=== PATIENT | male | born 1940 | race Caucasian/White ===

== ENCOUNTER 2016-03-02 11:18 | Emergency (ER) | payer MEDICARE, OTHER ==
--- NOTE | 2016-03-02 13:18 | Emergency Department Record ---
History of Present Illness - General Chief Complaint: Hypertension Stated Complaint: ELEVATED B/P Time Seen by Provider: 03/02/16 12:33 Source: Patient, RN notes reviewed Mode of Arrival: Ambulatory - History of Present Illness Initial Comments: patient states here for a BP check and it was high over 200 systolic and it came down to 179/78 just sitting in the ED and I talked to him about increasing his meds for hypertension but he is seeing Dr. Rickey corbett in [address] Travis in 4 days and I want them to adjust his meds because he is asymptomatic at this time. Heart rate 50. He ate salty foods 2 days ago at [facility]. Patient also said Dr. Rickey Luna started a new BP med two weeks ago but he doesn't remember the name of the med. MD Complaint: Dizziness Onset/Timin -: Minutes(s) Timing: Unsure Improves With: Nothing Worsens With: Nothing - Related Data Home Medications Medication Instructions Recorded Confirmed Last Taken Metoprolol Succinate [Toprol Xl] 25 mg PO tab 02/26/16 03/02/16 Omeprazole 20 mg PO cap 02/26/16 03/02/16 Pravastatin Sodium 10 mg PO tab 02/26/16 03/02/16 Allergies Allergy/AdvReac Type Severity Reaction Status Date / Time meperidine HCl [From Demerol] Allergy Severe PT UNSURE Verified 03/02/16 12:01 OF REACTION meperidine [MEPERIDINE] Allergy Unknown VOMITING Verified 03/02/16 12:01 hydrocodone bitartrate AdvReac Intermediate NAUSEA AND Verified 03/02/16 12:01 [From [place]] VOMITING Travel Screening - Travel/Exposure Within Last 30 Days Have you traveled within the last 30 days?: No - Travel/Exposure Within Last Year Have you traveled outside the [place] in the last year?: No - Additonal Travel Details Have you been exposed to anyone with a communicable illness?: No - Travel Symptoms Symptom Screening: None Review of Systems Reviewed: No additional complaints except as noted below Constitutional: Reports: As per HPI. Denies: Chills, Fever, Malaise, Night sweats, Weakness, Weight change Eyes: Reports: As per HPI. Denies: Eye discharge, Eye pain, Photophobia, Vision change ENT: Reports: As per HPI. Denies: Congestion, Dental pain, Ear pain, Epistaxis , Hearing loss, Throat pain Respiratory: Reports: As per HPI. Denies: Cough, Dyspnea, Hemoptysis, Stridor, Wheezes Cardiovascular: Reports: As per HPI. Denies: Arrhythmia, Chest pain, Dyspnea on exertion, Edema, Murmurs, Orthopnea, Palpitations, Paroxysmal nocturnal dyspnea, Rheumatic Fever, Syncope Endocrine: Reports: As per HPI. Denies: Fatigue, Heat or cold intolerance, Polydipsia, Polyuria Gastrointestinal: Reports: As per HPI. Denies: Abdominal pain, Constipation, Diarrhea, Hematemesis, Hematochezia, Melena, Nausea, Vomiting Genitourinary: Reports: As per HPI. Denies: Dysuria, Frequency, Hematuria, Incontinence, Retention, Testicular pain, Testicular mass, Urgency Musculoskeletal: Reports: As per HPI. Denies: Arthralgia, Back pain, Gout, Joint swelling, Myalgia, Neck pain Skin: Reports: As per HPI. Denies: Bruising, Change in color, Change in hair/ nails, Lesions, Pruritus, Rash Neurological: Reports: As per HPI. Denies: Abnormal gait, Confusion, Headache, Numbness, Paresthesias, Seizure, Tingling, Tremors, Vertigo, Weakness Psychiatric: Reports: As per HPI. Denies: Anxiety, Auditory hallucinations, Depression, Homicidal thoughts, Suicidal thoughts, Visual hallucinations Hematological/Lymphatic: Reports: As per HPI. Denies: Anemia, Blood Clots, Easy bleeding, Easy bruising, Swollen glands Past Medical History - SOCIAL HISTORY Smoking Status: Former smoker Alcohol Use: Occassional Drug Use: None - RESPIRATORY Hx Respiratory Disorders: Yes Hx of CPAP: Yes - CARDIOVASCULAR Hx Cardio Disorders: Yes Hx Cardiac Cath: Yes - NEURO Hx Neuro Disorders: No - GI Hx GI Disorders: No - Hx Genitourinary Disorders: No - ENDOCRINE Hx Endocrine Disorders: Yes Hx Diabetes: Yes - MUSCULOSKELETAL Hx Musculoskeletal Disorders: Yes Hx Arthritis: Yes Hx Back Injury: Yes - PSYCH Hx Psych Problems: Yes Hx Depression: Yes - HEMATOLOGY/ONCOLOGY Hx Hematology/Oncology Disorders: No Family Medical History Any Significant Family History?: Yes Hx Cancer: Mother Hx Heart Disease: Father *Heart Comment: father had 2 heart attacks. Hx Stroke: Father Physical Exam - General General Appearance: Alert, Oriented x3, Cooperative, No acute distress - Head Head exam: Normal inspection - Eye Eye exam: Normal appearance, PERRL Pupils: Normal accommodation - ENT ENT exam: Normal exam, Mucous membranes moist, Normal external ear exam, Normal orophraynx, TM's normal bilaterally Ear exam: Normal external inspection. negative: External canal tenderness Nasal Exam: Normal inspection. negative: Discharge, Sinus tenderness Mouth exam: Normal external inspection, Tongue normal Teeth exam: Normal inspection. negative: Dental caries Throat exam: Normal inspection. negative: Tonsillar erythema, Tonsillar exudate - Neck Neck exam: Normal inspection, Full ROM. negative: Tenderness - Respiratory Respiratory exam: Normal lung sounds bilaterally. negative: Respiratory distress - Cardiovascular Cardiovascular Exam: Regular rate, Normal rhythm, Normal heart sounds - GI/Abdominal GI/Abdominal exam: Soft, Normal bowel sounds. negative: Tenderness - Rectal Rectal exam: Deferred - exam: Deferred - Extremities Extremities exam: Normal inspection, Full ROM, Normal capillary refill. negative: Tenderness - Back Back exam: Reports: Normal inspection, Full ROM. Denies: Muscle spasm, Rash noted, Tenderness - Neurological Neurological exam: Alert, Normal gait, Oriented X3, Reflexes normal - Psychiatric Psychiatric exam: Normal affect, Normal mood - Skin Skin exam: Dry, Intact, Normal color, Warm Course Vital Signs 03/02/16 03/02/16 03/02/16 11:43 12:02 12:38 Temperature 97.7 F 97.7 F Pulse Rate [ 52 L 48 L Pulse Ox Probe] Respiratory 12 12 18 Rate Blood Pressure 164/74 179/78 [Left Arm] Pulse Ox 97 97 Disposition Clinical Impression: Hypertension Qualifiers: Hypertension type: essential hypertension Qualified Code(s): I10 - Essential ( primary) hypertension Disposition: Home, Self-Care Condition: (1) Good Instructions: Hypertension (ED) Additional Instructions: follow up with Dr. Rickey luna and Dr. Travis as scheduled Forms: Patient Portal Access Time of Disposition: 13:21
== END 2016-03-02 13:30 | disposition home or self-care (01) ==
LOC: ER 11:18
DX: I10 Essential (primary) hypertension (principal); R42 Dizziness and giddiness; Z87.891 Personal history of nicotine dependence
CPT/HCPCS: 99282

== ENCOUNTER 2016-03-29 14:38 | Emergency (ER) | payer MEDICARE, OTHER ==
--- NOTE | 2016-03-29 15:49 | Emergency Department Record ---
History of Present Illness - General Chief complaint: Lower Extremity Pain Stated complaint: LOWER LEG PAIN([place]) Time Seen by Provider: 03/29/16 15:40 Source: Patient Mode of Arrival: Ambulatory Limitations: No limitations - History of Present Illness Initial comments: 76 yo male presents with bilateral lower leg pains and cramps. The onset was today. He feels a tightness in his calves as well. His discomfort is left greater than right. no cough, shortness of breath or chest pain. -: Awoke with symptoms Location: Bilateral, Lower Leg Severity scale (1-10): 2 - Related Data Home Medications Medication Instructions Recorded Confirmed Last Taken Acetaminophen with Codeine 1 tab PO Q6H tab 03/06/16 03/29/16 03/29/16 [Acetaminophen-Cod #3 Tablet] Polyethylene Glycol 3350 17 gm PO QD packet 03/06/16 03/29/16 03/29/16 Lisinopril [Zestril] 03/29/16 Unknown Lisinopril [Zestril] 03/29/16 03/29/16 Allergies Allergy/AdvReac Type Severity Reaction Status Date / Time meperidine HCl [From Demerol] Allergy Severe PT UNSURE Verified 03/29/16 15:22 OF REACTION meperidine [MEPERIDINE] Allergy Unknown VOMITING Verified 03/29/16 15:22 hydrocodone bitartrate AdvReac Intermediate NAUSEA AND Verified 03/29/16 15:22 [From [place]] VOMITING Travel Screening - Travel/Exposure Within Last 30 Days Have you traveled within the last 30 days?: No - Travel/Exposure Within Last Year Have you traveled outside the [place] in the last year?: No - Additonal Travel Details Have you been exposed to anyone with a communicable illness?: No - Travel Symptoms Symptom Screening: None Review of Systems Constitutional: Denies: Chills, Fever, Weakness Eyes: Denies: Eye discharge ENT: Denies: Congestion Respiratory: Denies: Cough, Dyspnea, Hemoptysis, Stridor, Wheezes Cardiovascular: Denies: Chest pain, Palpitations, Syncope Endocrine: Denies: Fatigue Gastrointestinal: Denies: Abdominal pain, Diarrhea, Nausea, Vomiting Genitourinary: Denies: Hematuria, Urgency Musculoskeletal: Reports: Myalgia. Denies: Arthralgia, Back pain, Joint swelling, Neck pain Skin: Denies: Bruising, Change in color Neurological: Denies: Abnormal gait, Confusion Psychiatric: Denies: Anxiety Past Medical History - SOCIAL HISTORY Smoking Status: Former smoker Drug Use: None - RESPIRATORY Hx Respiratory Disorders: Yes Hx of CPAP: Yes - CARDIOVASCULAR Hx Cardio Disorders: Yes Hx Cardiac Cath: Yes - NEURO Hx Neuro Disorders: No - GI Hx GI Disorders: No - Hx Genitourinary Disorders: No - ENDOCRINE Hx Endocrine Disorders: Yes Hx Diabetes: Yes - MUSCULOSKELETAL Hx Musculoskeletal Disorders: Yes Hx Arthritis: Yes Hx Back Injury: Yes - PSYCH Hx Psych Problems: Yes Hx Depression: Yes - HEMATOLOGY/ONCOLOGY Hx Hematology/Oncology Disorders: No Family Medical History Hx Cancer: Mother Hx Heart Disease: Father *Heart Comment: father had 2 heart attacks. Hx Stroke: Father Physical Exam - General General Appearance: Alert, Oriented x3, Cooperative, No acute distress Limitations: No limitations - Head Head exam: Atraumatic, Normal inspection - Eye Eye exam: Normal appearance, PERRL. negative: Conjunctival injection - ENT ENT exam: Normal exam Ear exam: Normal external inspection Nasal Exam: Normal inspection Mouth exam: Normal external inspection Teeth exam: Normal inspection Throat exam: Normal inspection - Neck Neck exam: Normal inspection, Full ROM. negative: Tenderness - Respiratory Respiratory exam: Normal lung sounds bilaterally. negative: Respiratory distress - Cardiovascular Cardiovascular Exam: Regular rate, Normal rhythm, Normal heart sounds Peripheral Pulses: 2+: Radial (R), Radial (L), Dorsalis Pedis (R) (warm feet, brisk CR), Dorsalis Pedis (L) (warm feet brisk CR) - GI/Abdominal GI/Abdominal exam: Soft. negative: Distended, Tenderness - Rectal Rectal exam: Deferred - exam: Deferred - Extremities Extremities exam: Normal inspection, Full ROM, Normal capillary refill, Tenderness (tender bilateral calf). negative: Pedal edema - Back Back exam: Reports: Normal inspection, Full ROM. Denies: CVA tenderness (R), CVA tenderness (L), Muscle spasm, Rash noted, Tenderness - Neurological Neurological exam: Alert, Normal gait, Oriented X3 - Psychiatric Psychiatric exam: Normal affect, Normal mood. negative: Anxious, Depressed - Skin Skin exam: Dry, Intact, Normal color, Warm Course Vital Signs 03/29/16 15:27 Temperature 98.0 F Pulse Rate 58 L Respiratory 18 Rate Blood Pressure 156/69 Pulse Ox 97 - Reevaluation(s) Reevaluation #1: No acute changes on the labs The D-Dimer is negative I feel he was lower probability without swelling and atypical with intermittent cramps 03/29/16 16:51 Reevaluation #2: I discussed the results with the patient His calf on the left is still painful and tight We discussed risks and benefits and he prefers to get and US He prefers [facility] ED was [place] Montague [place] [facility] [place] was [place] for [place] Doppler is available 03/29/16 17:12 03/29/16 17:15 Medical Decision Making - Lab Data Result diagrams: 03/29/16 15:35 03/29/16 15:35 Disposition Disposition: Transfer Clinical Impression: Leg cramps Qualifiers: Laterality: bilateral Qualified Code(s): R25.2 - Cramp and spasm Disposition: Home, Self-Care [place]: [facility] [place] For Transfer: No [place] available at [facility] Accepting Physician: Dr Montague Time Discussed w/Accepting Physician: 17:15 Condition: (1) Good Instructions: Leg Cramps (ED) Additional Instructions: Return if you have swelling, fever, redness Call your doctor Thursday for close follow up Forms: Patient Portal Access Time of Disposition: 16:53
[2016-03-29 16:01] LABS: BASO % 0.9 % (0-6); EOS % 3.1 % (0-6); HEMATOCRIT 41.4 % (42.0-52.0); HEMOGLOBIN 14.6 gm/dl (14.0-18.0); LYMPH % 30.8 % (16-45); MEAN CELL VOLUME 82.1 fl (81-97); MEAN CORPUSCULAR HGB CONC 35.3 g/dl (32-36); MEAN PLATELET VOLUME 11.1 fl (7.4-10.4); MONO % 9.2 % (0-9); PLATELET COUNT 156 K/uL (130-400); RED BLOOD COUNT 5.04 M/uL (4.40-5.70); RED CELL DISTRIBUTION WIDTH 14.5 % (11.5-14.5); WHITE BLOOD COUNT W/O DIFF 6.7 K/uL (4.2-12.2)
[2016-03-29 16:10] LABS: ANION GAP 11.7 (7-16); BLOOD UREA NITROGEN 17 mg/dL (9-20); CARBON DIOXIDE 31.3 mmol/L (22-30); EST GLOMERULAR FILTRATION RATE > 60 ml/min; GLUCOSE,RANDOM 198 mg/dL (70-110)
== END 2016-03-29 17:29 | disposition home or self-care (01) ==
LOC: ER 14:38
DX: R25.2 Cramp and spasm (principal); E11.9 Type 2 diabetes mellitus without complications
CPT/HCPCS: 80048; 83735; 85025; 85379; 99284

== ENCOUNTER 2016-12-16 06:47 | Emergency (ER) | payer MEDICARE, OTHER ==
[2016-12-16] MEDS ORDERED: SODIUM CHLORIDE 0.9% 500 ML IV ONE (07:04)
--- NOTE | 2016-12-16 07:10 | Emergency Department Record ---
History of Present Illness - General Chief Complaint: General Stated Complaint: ELEVATED BLOOD GLUCOSE Time Seen by Provider: 12/16/16 06:59 Source: Patient Mode of Arrival: Ambulatory Limitations: No limitations - History of Present Illness Initial comments: 76 yo male presents with elevate blood sugar at 5am. His meter read 505. He took his normal diabetes medication. His accu check was 321 in the ED on arrival. He denies any headaches, dizziness, edema, no changes in thirst or urination, no vision changes or nausea. He brought his DM daily accucheck log. His morning value over the last few months range 190 to 310 with the majority in the 200's. He is seeing his PCP and they are focusing on better control. He has neuropathy. His A1C in November was 8.1 slightly improved from prior. -: Hour(s) (2) Quality: Other (No symptoms) Improves with: Medication, Other Worsens with: Eating Associated Symptoms: Denies other symptoms - [place] Coma Scale Eye Response: (4) Open spontaneously Motor Response: (6) Obeys commands Verbal Response: (5) Oriented [place] Total: 15 - Related Data Home Medications Medication Instructions Recorded Confirmed Last Taken Aspirin [Aspirin] 325 mg PO DAILY 12/16/16 12/16/16 Unknown Furosemide [Lasix] 20 mg PO MOWEFR 12/16/16 12/16/16 Unknown Omeprazole [Prilosec] 20 mg PO BID 12/16/16 12/16/16 Unknown Allergies Allergy/AdvReac Type Severity Reaction Status Date / Time meperidine HCl [From Demerol] Allergy Severe PT UNSURE Unverified 11/26/16 09:50 OF REACTION meperidine [MEPERIDINE] Allergy Unknown VOMITING Unverified 11/26/16 09:50 hydrocodone bitartrate AdvReac Intermediate NAUSEA AND Unverified 11/26/16 09:50 [From [place]] VOMITING Travel Screening - Travel/Exposure Within Last 30 Days Have you traveled within the last 30 days?: No Review of Systems Constitutional: Denies: Chills, Fever, Malaise, Weakness Eyes: Denies: Eye discharge, Vision change ENT: Denies: Congestion, Throat pain Respiratory: Denies: Cough Cardiovascular: Denies: Chest pain, Syncope Endocrine: Denies: Fatigue Gastrointestinal: Denies: Abdominal pain, Diarrhea, Nausea, Vomiting Genitourinary: Denies: Dysuria, Frequency, Hematuria Musculoskeletal: Denies: Arthralgia, Back pain, Myalgia Skin: Denies: Bruising, Change in color, Rash Neurological: Denies: Headache Psychiatric: Denies: Anxiety Hematological/Lymphatic: Denies: Blood Clots, Easy bleeding, Easy bruising, Swollen glands Past Medical History - SOCIAL HISTORY Smoking Status: Former smoker Alcohol Use: None Drug Use: None - RESPIRATORY Hx Respiratory Disorders: Yes Hx of CPAP: Yes - CARDIOVASCULAR Hx Cardio Disorders: Yes Hx Cardiac Cath: Yes - NEURO Hx Neuro Disorders: No - GI Hx GI Disorders: No - Hx Genitourinary Disorders: No - ENDOCRINE Hx Endocrine Disorders: Yes Hx Diabetes: Yes - MUSCULOSKELETAL Hx Musculoskeletal Disorders: Yes Hx Arthritis: Yes Hx Back Injury: Yes - PSYCH Hx Psych Problems: Yes Hx Depression: Yes - HEMATOLOGY/ONCOLOGY Hx Hematology/Oncology Disorders: No Family Medical History Any Significant Family History?: Yes Hx Cancer: Mother Hx Heart Disease: Father *Heart Comment: father had 2 heart attacks. Hx Stroke: Father Physical Exam - General General Appearance: Alert, Oriented x3, Cooperative, No acute distress Limitations: No limitations - Head Head exam: Atraumatic, Normocephalic, Normal inspection - Eye Eye exam: Normal appearance. negative: Conjunctival injection, Periorbital swelling, Scleral icterus - ENT ENT exam: Normal exam, Mucous membranes moist Ear exam: Normal external inspection Nasal Exam: Normal inspection Mouth exam: Normal external inspection - Neck Neck exam: Normal inspection - Respiratory Respiratory exam: Normal lung sounds bilaterally. negative: Respiratory distress - Cardiovascular Cardiovascular Exam: Regular rate, Normal rhythm, Normal heart sounds Peripheral Pulses: 2+: Radial (R), Radial (L) - GI/Abdominal GI/Abdominal exam: Soft. negative: Tenderness - Rectal Rectal exam: Deferred - exam: Deferred - Extremities Extremities exam: Normal inspection, Full ROM, Normal capillary refill. negative: Pedal edema, Tenderness - Back Back exam: Reports: Normal inspection, Full ROM. Denies: Muscle spasm, Rash noted, Tenderness - Neurological Neurological exam: Alert, Normal gait, Oriented X3 - Psychiatric Psychiatric exam: Normal affect, Normal mood. negative: Agitated, Anxious - Skin Skin exam: Dry, Intact, Normal color, Warm Course Vital Signs 12/16/16 06:58 Temperature 97.6 F Pulse Rate [ 60 Pulse Ox Probe] Respiratory 20 Rate Blood Pressure 127/63 [Left Arm] Pulse Ox 98 - Reevaluation(s) Reevaluation #1: Call Dr Her today to schedule close follow up of this ER visit Continue your daily log of your blood sugar readings Return if you have any symptoms or concerns 12/16/16 07:10 12/16/16 07:54 The labs were reviewed The pH was normal The acetone was normal The AG was normal The HCO3 was normal The serum glucose was 337 12/16/16 07:55 The patient is asymptomatic 12/16/16 08:05 accu check at [place] is 289 12/16/16 08:11 He remains asymptomatic at [place] He will call his PCP for close follow up of his [place] [facility] glucose control Medical Decision Making - Lab Data Result diagrams: 12/16/16 07:20 12/16/16 07:20 Disposition Disposition: Discharge Clinical Impression: Hyperglycemia Disposition: Home, Self-Care Condition: (1) Good Instructions: Diabetic Hyperglycemia (ED) Additional Instructions: Call your doctor for close follow up of this ER visit to review the labs Return if you have any symptoms or concerns You will have to 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
[2016-12-16 07:28] LABS: BASO % 0.8 % (0-6); EOS % 3.5 % (0-6); GRAN % 61.5 % (47-80); HEMATOCRIT 41.2 % (42.0-52.0); HEMOGLOBIN 14.3 gm/dl (14.0-18.0); LYMPH % 26.1 % (16-45); MEAN CELL VOLUME 86.7 fl (81-97); MEAN CORPUSCULAR HEMOGLOBIN 30.1 pg (27-33); MEAN CORPUSCULAR HGB CONC 34.7 g/dl (32-36); MEAN PLATELET VOLUME 11.5 fl (7.4-10.4); MONO % 8.1 % (0-9); PLATELET COUNT 147 K/uL (130-400); RED BLOOD COUNT 4.75 M/uL (4.40-5.70); RED CELL DISTRIBUTION WIDTH 13.5 % (11.5-14.5); WHITE BLOOD COUNT W/O DIFF 6.2 K/uL (4.2-12.2)
[2016-12-16 07:33] LABS: ACETONE,SERUM NEGATIVE (NEGATIVE)
[2016-12-16 07:40] LABS: BLOOD UREA NITROGEN 18 mg/dL (8-23); CREATININE 1.1 mg/dL (0.7-1.2); EST GLOMERULAR FILTRATION RATE > 60 mL/min; GLUCOSE,RANDOM 337 mg/dL (74-109)
== END 2016-12-16 08:23 | disposition home or self-care (01) ==
LOC: ER 06:47
DX: E11.40 Type 2 diabetes mellitus with diabetic neuropathy, unspecified (principal); E11.65 Type 2 diabetes mellitus with hyperglycemia; Z79.4 Long term (current) use of insulin
CPT/HCPCS: 36416; 80048; 82009; 82800; 82948; 85025; 99283; 99284

== ENCOUNTER 2017-03-08 17:12 | Emergency (ER) | payer MEDICARE, OTHER ==
--- NOTE | 2017-03-08 17:58 | Emergency Department Record ---
History of Present Illness - General Chief Complaint: Fall Injury Stated Complaint: FALL Time Seen by Provider: 03/08/17 17:51 Source: Patient Mode of Arrival: Ambulatory Limitations: No limitations - History of Present Illness Initial Comments: 76 yo male presents to ED for evaluation of a fall while getting out of vehicle this afternoon. Patient reports that he fell backwards resulting in injury to the left posterior ribs and right forearm. Patient reports pain in his back with deep breathing. Patient denies injury to the head or neck, denies numbness , tingling, or weakness to the extremities. Patient denies anticoagulation medication uses. Onset/Timin -: Hour(s) Fall From: From height (distance), Other When Fall Occurred: 4-6 hours [employer] Fall Witnessed: Yes, by family Place Fall Occurred: Home Loss of Consciousness: None Prolonged Down Time?: No Symptoms Prior to Fall: None Location: Back Severity scale (1-10): 10 Quality: Aching Associated Symptoms: Other - [place] Coma Scale Eye Response: (4) Open spontaneously Motor Response: (6) Obeys commands Verbal Response: (5) Oriented [place] Total: 15 - Related Data Allergies Allergy/AdvReac Type Severity Reaction Status Date / Time meperidine HCl [From Demerol] Allergy Severe PT UNSURE Verified 03/08/17 17:45 OF REACTION meperidine [MEPERIDINE] Allergy Unknown VOMITING Verified 03/08/17 17:45 hydrocodone bitartrate AdvReac Intermediate NAUSEA AND Verified 03/08/17 17:45 [From [place]] VOMITING Travel Screening - Travel/Exposure Within Last 30 Days Have you traveled within the last 30 days?: No - Travel/Exposure Within Last Year Have you traveled outside the [place] in the last year?: No - Additonal Travel Details Have you been exposed to anyone with a communicable illness?: No - Travel Symptoms Symptom Screening: None Review of Systems Constitutional: Denies: Chills, Fever, Malaise, Night sweats Eyes: Denies: Eye discharge, Eye pain ENT: Denies: Congestion, Ear pain, Epistaxis Respiratory: Denies: Cough, Dyspnea Cardiovascular: Denies: Chest pain, Dyspnea on exertion Endocrine: Denies: Fatigue, Heat or cold intolerance Gastrointestinal: Denies: Abdominal pain, Nausea, Vomiting Genitourinary: Denies: Incontinence, Retention Musculoskeletal: Reports: Back pain. Denies: Arthralgia, Gout, Joint swelling Skin: Denies: Bruising, Change in color Neurological: Denies: Abnormal gait, Confusion, Headache, Seizure Psychiatric: Denies: Anxiety Hematological/Lymphatic: Denies: Anemia, Blood Clots Past Medical History - SOCIAL HISTORY Smoking Status: Former smoker Alcohol Use: Occasional Drug Use: None - RESPIRATORY Hx Respiratory Disorders: Yes Hx of CPAP: Yes - CARDIOVASCULAR Hx Cardio Disorders: Yes Hx Cardiac Cath: Yes - NEURO Hx Neuro Disorders: No - GI Hx GI Disorders: No - Hx Genitourinary Disorders: No - ENDOCRINE Hx Endocrine Disorders: Yes Hx Diabetes: Yes - MUSCULOSKELETAL Hx Musculoskeletal Disorders: Yes Hx Arthritis: Yes Hx Back Injury: Yes - PSYCH Hx Psych Problems: Yes Hx Depression: Yes - HEMATOLOGY/ONCOLOGY Hx Hematology/Oncology Disorders: No Family Medical History Any Significant Family History?: No Hx Cancer: Mother Hx Heart Disease: Father *Heart Comment: father had 2 heart attacks. Hx Stroke: Father Physical Exam - General General Appearance: Alert, Oriented x3, Cooperative, Moderate distress Limitations: No limitations - Head Head exam: Atraumatic, Normocephalic, Normal inspection Head exam detail: negative: Abrasion, Contusion, Wu's sign, General tenderness, Hematoma, Laceration - Eye Eye exam: Normal appearance. negative: Conjunctival injection, Periorbital swelling, Periorbital tenderness, Scleral icterus - ENT Ear exam: negative: Auricular hematoma, Auricular trauma Nasal Exam: negative: Active bleeding, Discharge, Dried blood, Foreign body Mouth exam: negative: Drooling, Laceration, Muffled voice, Tongue elevation - Neck Neck exam: Normal inspection. negative: Meningismus, Tenderness - Respiratory Respiratory exam: Normal lung sounds bilaterally, Chest wall tenderness. negative: Rales, Respiratory distress, Rhonchi, Stridor - Cardiovascular Cardiovascular Exam: Regular rate, Normal rhythm, Normal heart sounds - GI/Abdominal GI/Abdominal exam: Soft. negative: Rebound, Rigid, Tenderness - Rectal Rectal exam: Deferred - exam: Deferred - Extremities Extremities exam: Tenderness, Other (Abrasions to the right forearm, FROM on examination). negative: Calf tenderness, Pedal edema - Back Back exam: Reports: Other (Abrasion left posterior thoracic wall). Denies: CVA tenderness (R), CVA tenderness (L) - Neurological Neurological exam: Alert, Normal gait, Oriented X3 - Psychiatric Psychiatric exam: Normal affect, Normal mood - Skin Skin exam: Abrasion, Normal color Type of lesion: abrasion Course Vital Signs 03/08/17 17:44 Temperature 97.8 F Pulse Rate [ 56 L Pulse Ox Probe] Respiratory 18 Rate Blood Pressure 143/81 [Left Arm] Pulse Ox 97 - Reevaluation(s) Reevaluation #1: 03/08/17 17:57 Patient was seen and examined, complains of left posterior rib pain on examination, denies the need for analgesia at this time. Will obtain imaging, redress his abrasions to the forearm, and reassess. Reevaluation #2: 03/08/17 19:09 CT Chest: No acute process, few small, non-calcified nodules right lung CT Abdomen: No acute process Several hepatic cysts, 2.3 cm lesion liver c/w proteinaceous cyst Patient was updated on all results, continues to deny the need for analgesia. Will discharge home with IS following instructions. Disposition Disposition: Discharge Clinical Impression: Contusion of rib on left side Qualifiers: Encounter type: initial encounter Qualified Code(s): S20.212A - Contusion of left front wall of thorax, initial encounter Abrasion forearm Qualifiers: Encounter type: initial encounter Laterality: right Qualified Code(s): S50.811A - Abrasion of right forearm, initial encounter Disposition: Home, Self-Care Condition: (2) Stable Instructions: Contusion in Adults (ED) Additional Instructions: Return to ED if your symptoms worsen or if you have any concerns. Ibuprofen as needed for pain. Follow-up with your family doctor in 3-5 days as directed. IS as directed. Forms: Patient Portal Access Time of Disposition: 19:17 Quality - Quality Measures Quality Measures: N/A - Blood Pressure Screening Does Patient Have Any of the Following: No Blood Pressure Classification: Pre-Hypertensive BP Reading Systolic Measurement: 138 Diastolic Measurement: 68 Screening for High Blood Pressure: < Pre-Hypertensive BP, F/U Documented > [ [id number]] Pre-Hypertensive Follow-up Interventions: Referral to alternative/primary care provider.
--- NOTE | 2017-03-09 08:59 | CT SCAN REPORT ---
EXAM: CT SCAN OF THE CHEST WITHOUT CONTRAST HISTORY: FELL BACKWARDS. LEFT SIDED CHEST AND BACK PAIN. TECHNIQUE: Standard CT imaging of the chest was performed in the axial plane without contrast. Comparison: Previous CT scan of the abdomen and pelvis dated 10/24/14. Encounter: Initial. FINDINGS: The patient is status post median sternotomy. The heart is normal in size. Atherosclerotic changes are present within the aorta with no aneurysm. There is no mediastinal or hilar lymphadenopathy. There are no acute infiltrates or effusions. There is no pneumothorax. There are a few tiny noncalcified nodules within the right lung with the largest measuring 2 mm in maximal dimension. There are moderate degenerative changes within the thoracic spine. There is no visible acute fracture. The ribs appear intact. There is a 5.4 x 4.7 cm cyst within the medial segment of the left hepatic lobe. There is a round hyperdense lesion within the lateral segment of the left hepatic lobe measuring 2.1 x 2.3 cm. This is nonspecific and may represent a proteinaceous cyst. The remaining visualized portions of the upper abdomen are normal. IMPRESSION: 1. NO ACUTE INTRATHORACIC PATHOLOGY. 2. TINY NONCALCIFIED NODULES WITHIN THE RIGHT LUNG. NO FURTHER FOLLOW-UP IS REQUIRED UNLESS THE PATIENT IS AT HIGH RISK FOR MALIGNANCY, IN WHICH CASE, A TWELVE MONTH FOLLOW-UP WOULD BE RECOMMENDED. 3. CHRONIC FINDINGS ABOVE. JOB NUMBER: [id number] [facility]
--- NOTE | 2017-03-09 09:06 | CT SCAN REPORT ---
EXAM: CT SCAN OF THE ABDOMEN WITHOUT CONTRAST HISTORY: FELL BACKWARDS. LEFT SIDED BACK PAIN. TECHNIQUE: Standard CT imaging of the abdomen was performed without contrast. Comparison: 10/24/14. Encounter: Initial. FINDINGS: The lung bases are clear. There is diffuse fatty infiltration of the liver. A 5.3 x 4.8 cm cyst is present within the medial segment of the left hepatic lobe. A 2.1 x 2.3 cm mildly hyperdense round lesion is present within the lateral segment of the left hepatic lobe posteriorly. This was not clearly seen previously. This is indeterminate in nature and may simply represent a proteinaceous cyst. A few other faintly visualized cysts are present within the hepatic parenchyma and are unchanged. The gallbladder, biliary tree, pancreas, spleen, and adrenal glands are normal. There is a small cortical cyst within the posterior cortex of the left kidney which is unchanged. The kidneys and visualized portions of the ureters are otherwise normal. Atherosclerotic calcifications are present within the aorta with no aneurysm. There is no retroperitoneal lymphadenopathy. The visualized large and small bowel loops are normal. There is no pneumoperitoneum or ascites. A small fat containing umbilical hernia is present. Degenerative changes are present within the spine. No acute osseous abnormalities are identified. There are post surgical changes within the lumbar region. IMPRESSION: 1. NO ACUTE INTRAABDOMINAL PATHOLOGY. 2. SCATTERED HEPATIC CYSTS. 3. A 2.1 X 2.3 CM ROUND HYPERDENSE LESION IS PRESENT WITHIN THE LATERAL SEGMENT OF THE LEFT HEPATIC LOBE. THIS IS INDETERMINATE IN NATURE AND MAY SIMPLY REPRESENT A PROTEINACEOUS CYST. THIS COULD BE FURTHER ASSESSED WITH FOLLOW-UP MULTIPHASIC CT OR MRI OF THE ABDOMEN. 4. STABLE LEFT RENAL CYST. 5. SMALL FAT CONTAINING UMBILICAL HERNIA. JOB NUMBER: [id number] [facility]
== END 2017-03-08 19:25 | disposition home or self-care (01) ==
LOC: ER 17:12
DX: S20.212A Contusion of left front wall of thorax, initial encounter (principal); S50.811A Abrasion of right forearm, initial encounter; M54.9 Dorsalgia, unspecified; R07.81 Pleurodynia; R91.8 Other nonspecific abnormal finding of lung field; K76.89 Other specified diseases of liver; Z87.891 Personal history of nicotine dependence; W17.89XA Other fall from one level to another, initial encounter; Y92.007 Garden or yard of unspecified non-institutional (private) residence as the place of occurrence of the external cause
CPT/HCPCS: 71250; 74150; 99283; 99284

== ENCOUNTER 2017-06-14 16:51 | Observation (INO) | payer MEDICARE, OTHER ==
--- NOTE | 2017-06-14 17:04 | Emergency Department Record ---
History of Present Illness - General Chief Complaint: Chest Pain Stated Complaint: CHEST PAIN Time Seen by Provider: 06/14/17 17:00 Source: Patient Mode of Arrival: Ambulatory Limitations: No limitations - History of Present Illness Initial Comments: The patient is here due to developing CP about 15 minutes ago while driving. He states he was driving and felt 3 episodes of sharp stabbing retrosternal CP that were each very fleeing in duration. They all lasted less than a second and then resolved. He had no SOB, REBECCA, sweating, or nausea with it. Since he has had a vague chest aching retrosternally that he only gets with a deep breath even though he is not SOB. The patient has multiple cardiac risk factors and did have open heart surgery 2 years ago but that pain was different. MD Complaint: Chest pain Onset/Timin -: Minutes(s) Onset: During rest Pain Location: Substernal Pain Radiation: None Severity: Moderate Severity scale (1-10): 2 Quality: Sharp Consistency: Constant Worsens With: Nothing Treatments Prior to Arrival: None - Related Data Allergies Allergy/AdvReac Type Severity Reaction Status Date / Time meperidine HCl [From Demerol] Allergy Severe PT UNSURE Verified 06/14/17 16:58 OF REACTION meperidine [MEPERIDINE] Allergy Unknown VOMITING Verified 06/14/17 16:58 hydrocodone bitartrate AdvReac Intermediate NAUSEA AND Verified 06/14/17 16:58 [From [place]] VOMITING Travel Screening - Travel/Exposure Within Last 30 Days Have you traveled within the last 30 days?: No Review of Systems Constitutional: Denies: Chills, Fever Eyes: Denies: Eye discharge ENT: Denies: Congestion Respiratory: Denies: Cough, Dyspnea Past Medical History - SOCIAL HISTORY Smoking Status: Former smoker Alcohol Use: None Drug Use: None - RESPIRATORY Hx Respiratory Disorders: Yes Hx of CPAP: Yes - CARDIOVASCULAR Hx Cardio Disorders: Yes Hx Cardiac Cath: Yes Hx Heart Attack: Yes - NEURO Hx Neuro Disorders: No - GI Hx GI Disorders: No - Hx Genitourinary Disorders: No - ENDOCRINE Hx Endocrine Disorders: Yes Hx Diabetes: Yes - MUSCULOSKELETAL Hx Musculoskeletal Disorders: Yes Hx Arthritis: Yes Hx Back Injury: Yes - PSYCH Hx Psych Problems: Yes Hx Depression: Yes - HEMATOLOGY/ONCOLOGY Hx Hematology/Oncology Disorders: No Family Medical History Any Significant Family History?: Yes Hx Cancer: Mother Hx Heart Disease: Father *Heart Comment: father had 2 heart attacks. Hx Stroke: Father Physical Exam - General General Appearance: Alert, Oriented x3, Cooperative, No acute distress - Head Head exam: Atraumatic, Normocephalic, Normal inspection - Eye Eye exam: Normal appearance, PERRL, EOMI - ENT Throat exam: Normal inspection. negative: Tonsillar erythema, Tonsillar exudate - Neck Neck exam: Normal inspection, Full ROM. negative: Tenderness - Respiratory Respiratory exam: Normal lung sounds bilaterally. negative: Chest wall tenderness, Respiratory distress - Cardiovascular Cardiovascular Exam: Regular rate, Normal rhythm, Normal heart sounds - GI/Abdominal GI/Abdominal exam: Soft, Normal bowel sounds. negative: Tenderness - Extremities Extremities exam: Normal inspection, Full ROM, Normal capillary refill. negative: Tenderness - Neurological Neurological exam: Alert. negative: Motor sensory deficit Course Vital Signs 06/14/17 16:55 Temperature 97.8 F Pulse Rate 60 Respiratory 20 Rate Blood Pressure 189/77 Pulse Ox 98 - Reevaluation(s) Reevaluation #1: The patient is doing very well at this time. He denies any pain or discomfort. He is still having vague fleeting sharp discomfort off and on but nothing persistent. Because of his hx I did recommend a short stay hospital admission and the patient agreed. I then did discuss the case with his PCP Dr. Her and he agreed to the admission. 06/14/17 18:22 Medical Decision Making - Data Complexity MDM Data: Labs Ordered and/or Reviewed, X-Ray Ordered and/or Reviewed, EKG Ordered and/or Reviewed - Lab Data Result diagrams: 06/14/17 17:00 06/14/17 17:00 - EKG Data -: EKG Interpreted by Me EKG: No Acute Changes, Unchanged From Previous, Abnormal EKG (RBBB with Prolonged PA interval. No change from 03/17/17 and 02/12/16.) - Radiology Data Radiology results: Report reviewed (CXR: No acute dz.) Disposition Disposition: Admit Clinical Impression: Chest pain at rest Disposition: Still a Patient at [facility] Decision to Admit: Admit from ER Decision to Admit Date: 06/14/17 Decision to Admit Time: 18:31 Accepting Physician: Arden Time Discussed w/Accepting Physician: 18:31 Condition: (2) Stable Forms: Patient Portal Access Time of Disposition: 18:31 Quality - Quality Measures Quality Measures: N/A - Blood Pressure Screening View Details: Yes Does Patient Have Any of the Following: Active Dx of HTN Blood Pressure Classification: Hypertensive Reading Systolic Measurement: 189 Diastolic Measurement: 77 Screening for High Blood Pressure: Patient Exclusion, Hx of HTN [G9744]
[2017-06-14] MEDS ORDERED: ASPIRIN 325 MG TABLET PO ONE (17:09)
[2017-06-14] MEDS ORDERED: MAGNESIUM HYDROXIDE/AL HYDROX 30 ML, LIDOCAINE VISC 2% 15ML 15 ML PO ONE ×2 (17:10)
[2017-06-14] MEDS ORDERED: SUCRALFATE 1 G/10 ML UD PO ONE (17:14)
[2017-06-14 17:15] LABS: BASO % 0.7 % (0-6); EOS % 4.4 % (0-6); GRAN % 54.4 % (47-80); HEMATOCRIT 42.6 % (42.0-52.0); HEMOGLOBIN 14.6 gm/dl (14.0-18.0); LYMPH % 31.7 % (16-45); MEAN CELL VOLUME 88.4 fl (81-97); MEAN CORPUSCULAR HEMOGLOBIN 30.3 pg (27-33); MEAN CORPUSCULAR HGB CONC 34.3 g/dl (32-36); MEAN PLATELET VOLUME 11.1 fl (7.4-10.4); MONO % 8.8 % (0-9); PLATELET COUNT 164 K/uL (130-400); RED BLOOD COUNT 4.82 M/uL (4.40-5.70); RED CELL DISTRIBUTION WIDTH 13.8 % (11.5-14.5); WHITE BLOOD COUNT W/O DIFF 7.5 K/uL (4.2-12.2)
[2017-06-14 17:33] LABS: PARTIAL THROMBOPLASTIN TIME 25.7 SECONDS (24.5-39.1); PROTHROMBIN TIME (PATIENT) 10.4 SECONDS (9.5-12.1)
[2017-06-14 17:34] LABS: BLOOD UREA NITROGEN 13 mg/dL (8-23); CREATININE 1.1 mg/dL (0.7-1.2); EST GLOMERULAR FILTRATION RATE > 60 mL/min; GLUCOSE,RANDOM 214 mg/dL (74-109)
[2017-06-14 17:36] LABS: CKMB 7.8 ng/mL (<6.73)
[2017-06-14 18:06] LABS: CREATINE PHOSPHOKINASE 234 U/L (39-308)
[2017-06-14] MEDS ORDERED: POTASSIUM CHLORIDE 10 MEQ TAB PO SCH (19:12)
[2017-06-14] MEDS ORDERED: Non-Formulary MISC (Blood Sugar Diagnostic [Test Strips] 1 EACH) MC PRN (19:12)
[2017-06-14] MEDS ORDERED: AMLODIPINE BESYLATE 5MG TAB PO SCH (19:12)
[2017-06-14] MEDS ORDERED: PANTOPRAZOLE SODIUM IV 40 MG VIAL IVP SCH (19:12)
[2017-06-14] MEDS ORDERED: ACETAMINOPHEN W/ CODEINE 300MG/30MG TABLET PO SCH (19:12)
[2017-06-14] MEDS ORDERED: ACETAMINOPHEN 500 MG TABLET PO PRN (19:12)
[2017-06-14] MEDS ORDERED: LEVEMIR FLEXTOUCH 100 UNIT/ML INSULIN PEN SQ SCH (22:00)
[2017-06-14] MEDS ORDERED: TAMSULOSIN HCL 0.4 MG CAP.ER.24H PO SCH (22:00)
[2017-06-14] MEDS ORDERED: GABAPENTIN 300 MG CAPSULE PO SCH (22:00)
[2017-06-14] MEDS ORDERED: METFORMIN 500 MG TABLET PO SCH (22:00)
[2017-06-14] MEDS ORDERED: METOPROLOL SUCC 25 MG TAB.ER PO SCH (22:00)
[2017-06-15] MEDS: IPRATROPIUM BR 0.02% NEB (0.5MG) INH SCH ×2 (01:25→06:15)
[2017-06-15 01:42] LABS: CKMB 5.3 ng/mL (<6.73)
[2017-06-15] MEDS ORDERED: PANTOPRAZOLE SODIUM 40 MG TABLET PO SCH (07:00)
--- NOTE | 2017-06-15 07:24 | RADIOLOGY REPORT ---
EXAM: CHEST, TWO VIEWS HISTORY: CHEST PAIN AND DIFFICULTY IN BREATHING TODAY. TECHNIQUE: PA and lateral views of the chest were obtained. Comparison: Two view chest 06/07/15. FINDINGS: Postop sternotomy with a left atrial appendage clip as before. Postop low cervical fusion as before as well. The heart size is within normal limits. No definite acute infiltrate is seen and no pleural effusion or pneumothorax evident. Quite prominent spurring along the anterior aspect of the thoracic spine again noted. IMPRESSION: 1. POSTOP STERNOTOMY AND POSTOP LOWER CERVICAL SPINAL FUSION BEFORE. 2. PROMINENT SPURRING IN THE THORACIC SPINE. 3. NO ACUTE INFILTRATE IDENTIFIED. JOB NUMBER: [id number] [facility]
[2017-06-15] MEDS ORDERED: NOVOLOG FLEXPEN (INSULIN ASPART) 100 UNITS/ML SQ SCH ×3 (07:45→10:00)
--- NOTE | 2017-06-15 08:25 | History & Physical ---
History of Present Illness - Date of Service Date of Service for History & Physical: 06/15/17 - History of Present Illness Admitting Diagnosis: 1. Chest pain at Rest, R/O CT. History of Present Illness: Mr. Starkey is a 77 y/o male wit coronary artery disease s/p CABG, diabetes mellitus II, diabetic neuropathy, and fibromylalgia who is here with complaint of intermittent chest pain which began yesterday as he was driving. The patient says that the pain was sharp, needle like and over the left chest. He says that it went away but then came back a few seconds later. He denies any pressure, headaches, nausea or vomiting. The patient is compliant with his medication follows with the RHC here at [facility]. In the ED the patient's workup was negative for acute coronary syndrome. His chest xray is negative for infiltrate or opacities, ECG shows old RBBB and 1st degree AV. Troponins negative x 2 and the patient's symptoms resolved spontaneously. The patient has been admitted for observation on hospital monitor and serial troponins. Travel Screening - Travel/Exposure Within Last 30 Days Have you traveled within the last 30 days?: No - Travel/Exposure Within Last Year Have you traveled outside the [place] in the last year?: No - Additonal Travel Details Have you been exposed to anyone with a communicable illness?: No - Travel Symptoms Symptom Screening: None Review of Systems Constitutional: Denies: Chills, Fever Eyes: Denies: Eye discharge ENT: Denies: Congestion Respiratory: Denies: Cough, Dyspnea Past Medical History - SOCIAL HISTORY Smoking Status: Former smoker Alcohol Use: Rare Drug Use: None - RESPIRATORY Hx Respiratory Disorders: Yes Hx of CPAP: Yes - CARDIOVASCULAR Hx Cardio Disorders: Yes Hx Cardiac Cath: Yes Hx Heart Attack: Yes - NEURO Hx Neuro Disorders: No - GI Hx GI Disorders: No - Hx Genitourinary Disorders: No - ENDOCRINE Hx Endocrine Disorders: Yes Hx Diabetes: Yes - MUSCULOSKELETAL Hx Musculoskeletal Disorders: Yes Hx Arthritis: Yes Hx Back Injury: Yes - PSYCH Hx Psych Problems: Yes Hx Depression: Yes - HEMATOLOGY/ONCOLOGY Hx Hematology/Oncology Disorders: No Family Medical History Any Significant Family History?: Yes Hx Cancer: Mother Hx Heart Disease: Father *Heart Comment: father had 2 heart attacks. Hx Stroke: Father H&P Meds/Allergies - Allergies Allergies: Allergies Allergy/AdvReac Type Severity Reaction Status Date / Time meperidine HCl [From Demerol] Allergy Severe PT UNSURE Verified 06/14/17 16:58 OF REACTION meperidine [MEPERIDINE] Allergy Unknown VOMITING Verified 06/14/17 16:58 hydrocodone bitartrate AdvReac Intermediate NAUSEA AND Verified 06/14/17 16:58 [From [place]] VOMITING - Active Medications Active Medications: Current Medications Acetaminophen (Tylenol 500mg Tab) 500 mg PO Q6H PRN PRN Reason: PAIN/TEMP Amlodipine Besylate (Norvasc) 5 mg PO 1000 [facility] Aspirin (Ecotrin (Ec)) 325 mg PO DAILY [facility] Furosemide (Lasix) 20 mg PO 1000 [facility] Gabapentin (Neurontin) 300 mg PO TID [facility] Last Admin: 06/14/17 21:57 Dose: 300 mg Hydrochlorothiazide (Hctz 25mg) 25 mg PO DAILY [facility] Insulin Aspart (Novolog Flexpen) 5 unit SQ TIDINS [facility] Insulin Detemir (Levemir Flextouch) 70 unit SQ QHS [facility] Last Admin: 06/14/17 21:59 Dose: 70 unit Losartan Potassium (Losartan Potassium) 100 mg PO DAILY [facility] Metformin HCl (Glucophage Ir) 1,000 mg PO BID [facility] Last Admin: 06/14/17 21:57 Dose: 1,000 mg Metoprolol Succinate (Toprol Xl) 25 mg PO BID [facility] Last Admin: 06/14/17 21:57 Dose: 25 mg Pantoprazole Sodium (Protonix) 40 mg PO DAILYAC [facility] Last Admin: 06/15/17 06:02 Dose: 40 mg Pantoprazole Sodium (Protonix Iv) 40 mg IVP Q24H [facility] Last Admin: 06/14/17 21:02 Dose: Not Given Potassium Chloride (Klor-Con) 10 meq PO 1000 [facility] Simvastatin (Zocor) 5 mg PO MoWeFr [facility] Tamsulosin HCl (Flomax) 0.4 mg PO QHS [facility] Last Admin: 06/14/17 21:58 Dose: 0.4 mg Physical Exam - Vital Signs Vital Signs: Vital Signs - Last 24 Hrs Temp Pulse Pulse Pulse Resp BP BP 06/15/17 08:00 97.7 F 51 L 18 144/68 06/15/17 00:05 98.1 F 54 L 16 130/53 06/14/17 21:00 16 06/14/17 19:10 98.7 F 57 L 16 160/68 06/14/17 18:22 53 L 20 145/69 06/14/17 17:40 58 L 20 138/63 06/14/17 16:55 97.8 F 60 20 189/77 Pulse Ox 06/15/17 08:00 96 06/15/17 00:05 96 06/14/17 21:00 06/14/17 19:10 97 06/14/17 18:22 99 06/14/17 17:40 98 06/14/17 16:55 98 - General General Appearance: Alert, Oriented x3, Cooperative, No acute distress Limitations: No limitations - Head Head exam: Atraumatic, Normocephalic, Normal inspection - Eye Eye exam: Normal appearance, PERRL, EOMI - ENT Throat exam: Normal inspection. negative: Tonsillar erythema, Tonsillar exudate - Neck Neck exam: Normal inspection, Full ROM. negative: Tenderness - Respiratory Respiratory exam: Normal lung sounds bilaterally. negative: Chest wall tenderness, Respiratory distress - Cardiovascular Cardiovascular Exam: Regular rate, Normal rhythm, Normal heart sounds Peripheral Pulses: 3+: Radial (R), Radial (L), Dorsalis Pedis (R), Dorsalis Pedis (L) - GI/Abdominal GI/Abdominal exam: Soft, Normal bowel sounds. negative: Tenderness - Extremities Extremities exam: Normal inspection, Full ROM, Normal capillary refill. negative: Tenderness - Neurological Neurological exam: Alert. negative: Motor sensory deficit Results - Labs Result Diagrams: 06/14/17 17:00 06/14/17 17:00 Labs Last 24 Hours: Laboratory Results - last 24 hr 06/14/17 06/14/17 06/14/17 01:15 17:00 17:00 WBC 7.5 RBC 4.82 Hgb 14.6 Hct 42.6 MCV 88.4 MCH 30.3 MCHC 34.3 RDW 13.8 Plt Count 164 MPV 11.1 H Gran % 54.4 Lymphocytes % 31.7 Monocytes % 8.8 Eosinophils % 4.4 Basophils % 0.7 PT 10.4 INR 1.0 APTT 25.7 D-Dimer 0.28 Sodium Potassium Chloride Carbon Dioxide Anion Gap BUN Creatinine Estimated GFR Random Glucose Calcium Creatine Kinase CK-MB (CK-2) 5.3 CK-MB (CK-2) Rel Index Troponin T < 0.010 06/14/17 06/14/17 06/14/17 17:00 17:00 23:00 WBC RBC Hgb Hct MCV MCH MCHC RDW Plt Count MPV Gran % Lymphocytes % Monocytes % Eosinophils % Basophils % PT INR APTT D-Dimer Sodium 144 Potassium 4.2 Chloride 98 Carbon Dioxide 32.0 H Anion Gap 14.0 BUN 13 Creatinine 1.1 Estimated GFR > 60 Random Glucose 214 H Calcium 9.7 Creatine Kinase 234 Cancelled CK-MB (CK-2) 7.8 H Cancelled CK-MB (CK-2) Rel Index 3.30 Troponin T < 0.010 06/15/17 07:00 WBC RBC Hgb Hct MCV MCH MCHC RDW Plt Count MPV Gran % Lymphocytes % Monocytes % Eosinophils % Basophils % PT INR APTT D-Dimer Sodium Potassium Chloride Carbon Dioxide Anion Gap BUN Creatinine Estimated GFR Random Glucose Calcium Creatine Kinase CK-MB (CK-2) Cancelled CK-MB (CK-2) Rel Index Troponin T VTE H&P Assessment - Risk for VTE Risk for VTE: Yes Risk Level: Moderate Risk Assessment Date: 06/15/17 Risk Assessment Time: 08:32 VTE Orders Placed or Will Be Placed: Yes AMI H&P Plan - EKG Initial Date: 06/14/17 EKG: No Acute Changes, Unchanged From Previous Plan - Detailed Diagnosis and Plan (1) CAD (coronary artery disease) Current Visit: Yes Status: Acute Base Code: I25.10 - ATHSCL HEART DISEASE OF [place] CORONARY ARTERY W/O ANG PCTRS Comment: - atypical chest pain, non -cardiac. - ECG, old RBBB, and 1st degree AV, no acute ST-T wave changes. No acute changes on monitor. - Troponins negative x 2, electrolytes WNL, chest xray negative for infiltrates/ opacities. D-dimer 0.28. - Stress test 02/2016 - negative for ischemia. Estimated EF 69%. Follows with Dr. Luna @ [facility]. - Resume ASA, Statin, BB, FABIENNE (2) Diabetes mellitus type II, controlled Current Visit: Yes Status: Acute Base Code: E11.9 - TYPE 2 DIABETES MELLITUS WITHOUT COMPLICATIONS Comment: 06/15: Glucose 214-->171 - Lantus 70 units QHS, Metformin 1000mg BID, Novolog 8 units TIDAC - ASA, statin, ARB - Accuchecks AcHs, ADA Diet (3) Diabetic neuropathy Current Visit: Yes Status: Chronic Base Code: E11.40 - TYPE 2 DIABETES MELLITUS WITH DIABETIC NEUROPATHY, UNSP Comment: 06/15: Neurotin 300mg TID - tight glycemic controls - Diabetic foot checks in the office (4) HTN (hypertension) Current Visit: Yes Status: Acute Base Code: I10 - ESSENTIAL (PRIMARY) HYPERTENSION Comment: 06/15: BP 144/68 - Norvasc 5mg, Losartarn 100mg QD, Toprolol XL 25mg BID. (5) BPH (benign prostatic hyperplasia) Current Visit: Yes Status: Acute Base Code: N40.0 - BENIGN PROSTATIC HYPERPLASIA WITHOUT LOWER URINRY TRACT SYMP Comment: 06/15: resume Flomax 0.4mg QD (6) Full code status Current Visit: Yes Status: Acute Base Code: Z78.9 - OTHER SPECIFIED HEALTH STATUS - Disposition D/C home with cardiac follow up outpatient.
--- NOTE | 2017-06-15 09:22 | Discharge Summary ---
Providers Discharge Summary Date: 06/15/17 Date of admission: 06/14/17 18:58 Attending physician: ROSARIO HER Primary care physician: ROSARIO HER Physical Exam - Vital Signs Vital Signs: Vital Signs - Last 24 Hrs Temp Pulse Pulse Pulse Resp BP BP 06/15/17 08:00 97.7 F 51 L 18 144/68 06/15/17 00:05 98.1 F 54 L 16 130/53 06/14/17 21:00 16 06/14/17 19:10 98.7 F 57 L 16 160/68 06/14/17 18:22 53 L 20 145/69 06/14/17 17:40 58 L 20 138/63 06/14/17 16:55 97.8 F 60 20 189/77 Pulse Ox 06/15/17 08:00 96 06/15/17 00:05 96 06/14/17 21:00 06/14/17 19:10 97 06/14/17 18:22 99 06/14/17 17:40 98 06/14/17 16:55 98 - General General Appearance: Alert, Oriented x3, Cooperative, No acute distress Limitations: No limitations - Head Head exam: Atraumatic, Normocephalic, Normal inspection - Eye Eye exam: Normal appearance, PERRL, EOMI - ENT Throat exam: Normal inspection. negative: Tonsillar erythema, Tonsillar exudate - Neck Neck exam: Normal inspection, Full ROM. negative: Tenderness - Respiratory Respiratory exam: Normal lung sounds bilaterally. negative: Chest wall tenderness, Respiratory distress - Cardiovascular Cardiovascular Exam: Regular rate, Normal rhythm, Normal heart sounds Peripheral Pulses: 3+: Radial (R), Radial (L), Dorsalis Pedis (R), Dorsalis Pedis (L) - GI/Abdominal GI/Abdominal exam: Soft, Normal bowel sounds. negative: Tenderness - Extremities Extremities exam: Normal inspection, Full ROM, Normal capillary refill. negative: Tenderness - Neurological Neurological exam: Alert. negative: Motor sensory deficit Hospitalization - Hospitalization Admission Diagnosis: 1. Chest pain at Rest, R/O [place]. - Problem List/Discharge Diagnosis (1) CAD (coronary artery disease) Current Visit: Yes Status: Acute Base Code: I25.10 - ATHSCL HEART DISEASE OF [place] CORONARY ARTERY W/O ANG PCTRS Comment: - atypical chest pain, non -cardiac. - ECG, old RBBB, and 1st degree AV, no acute ST-T wave changes. No acute changes on monitor. - Troponins negative x 2, electrolytes WNL, chest xray negative for infiltrates/ opacities. D-dimer 0.28. - Stress test 02/2016 - negative for ischemia. Estimated EF 69%. Follows with Dr. Luna @ [facility]. - Resume ASA, Statin, BB, FABIENNE (2) Diabetes mellitus type II, controlled Current Visit: Yes Status: Acute Base Code: E11.9 - TYPE 2 DIABETES MELLITUS WITHOUT COMPLICATIONS Comment: 06/15: Glucose 214-->171 - Lantus 70 units QHS, Metformin 1000mg BID, Novolog 8 units TIDAC - ASA, statin, ARB - Accuchecks AcHs, ADA Diet (3) Diabetic neuropathy Current Visit: Yes Status: Chronic Base Code: E11.40 - TYPE 2 DIABETES MELLITUS WITH DIABETIC NEUROPATHY, UNSP Comment: 06/15: Neurotin 300mg TID - tight glycemic controls - Diabetic foot checks in the office (4) HTN (hypertension) Current Visit: Yes Status: Acute Base Code: I10 - ESSENTIAL (PRIMARY) HYPERTENSION Comment: 06/15: BP 144/68 - Norvasc 5mg, Losartarn 100mg QD, Toprolol XL 25mg BID. (5) BPH (benign prostatic hyperplasia) Current Visit: Yes Status: Acute Base Code: N40.0 - BENIGN PROSTATIC HYPERPLASIA WITHOUT LOWER URINRY TRACT SYMP Comment: 06/15: resume Flomax 0.4mg QD (6) Full code status Current Visit: Yes Status: Acute Base Code: Z78.9 - OTHER SPECIFIED HEALTH STATUS - Disposition D/C home with cardiac follow up outpatient. - Hospitalization Course Hospital Course: Mr. Starkey is a 77 y/o male wit coronary artery disease s/p CABG, diabetes mellitus II, diabetic neuropathy, and fibromylalgia who is here with complaint of intermittent chest pain which began yesterday as he was driving. The patient says that the pain was sharp, needle like and over the left chest. He says that it went away but then came back a few seconds later. He denies any pressure, headaches, nausea or vomiting. The patient is compliant with his medication follows with the RHC here at [facility]. In the ED the patient's workup was negative for acute coronary syndrome. His chest xray is negative for infiltrate or opacities, ECG shows old RBBB and 1st degree AV. Troponins negative x 2 and the patient's symptoms resolved spontaneously. The patient has been admitted for observation on panel monitor and serial troponins. Procedures: Imaging and X-Rays 06/14/17 17:09 CHEST 2 VIEWS [RAD] Stat Cardiology Procedures 06/14/17 16:56 EKG NOW 06/14/17 17:09 Machine Try Out Setter NOW 06/14/17 17:37 EKG NOW 06/14/17 19:12 Machine Try Out Setter .Continuous EKG QDX2@0600 Abnormal Labs: Abnormal Lab Results 06/14/17 06/14/17 06/15/17 Range/Units 17:00 17:00 07:30 MPV 11.1 H (7.4-10.4) fl Carbon Dioxide 32.0 H (22-29) mmol/L POC Glucose 171 H (70-110) mg/dL Random Glucose 214 H (74-109) mg/dL CK-MB (CK-2) 7.8 H (<6.73) ng/mL Condition at Discharge: (2) Stable Discharge Medications - Discharge Medications Home Medications: Ambulatory Orders Aspirin 325 mg PO DAILY 12/16/16 [Last Taken 03/08/17] Acetaminophen [Tylenol 500Mg Tab] 500 mg PO Q6H PRN tablet 06/15/17 [Last Taken Unknown] Amlodipine Besylate [Norvasc] 5 mg PO 1000 tab 06/15/17 [Last Taken Unknown] Aspirin Enteric-Coated [Ecotrin (EC)] 325 mg PO DAILY tabec 06/15/17 [Last Taken Unknown] Gabapentin [Neurontin] 300 mg PO TID capsule 06/15/17 [Last Taken Unknown] Hydrochlorothiazide [Hctz] 25 mg PO DAILY tablet 06/15/17 [Last Taken Unknown] Insulin Aspart [Novolog Flexpen] 5 unit SQ TIDINS ml 06/15/17 [Last Taken Unknown] Insulin Detemir [Levemir Flextouch] 70 unit SQ QHS syringe 06/15/17 [Last Taken Unknown] Discharge Plan - Discharge Instructions Activity at Discharge: Resume Usual Activities As Tolerated Diet at Discharge: Diabetic Diet, Low Salt Diet Additional Instructions: Follow up with Cardiology as scheduled. See Dr. Her in [facility] for regular Diabetic check up which has already been scheduled. Return to the ED if symptoms return. Quality Measures - Quality Measures Quality Measures: Advance Directives, Coronary Artery Disease: Antiplatelet Therapy, Documentation of Current Medications in Medical Record, Elder Maltreatment Screen and Follow-Up Plan, Screening for High Blood Pressure and F/ U Documented - Current Medications Quality Measure: Measure #130: Documentation of Current Medications Documentation of Current Medications: <Current Medications Documented/Reviewed> [Z3454] - Blood Pressure Screening Quality Measure: Screening for High Blood Pressure and Follow-Up Documented Does Patient Have Any of the Following: Active Dx of HTN Blood Pressure Classification: Hypertensive Reading Systolic Measurement: 189 Diastolic Measurement: 77 Screening for High Blood Pressure: Patient Exclusion, Hx of HTN [G9744] - Coronary Artery Disease Quality Measure: Measure #6: Coronary Artery Disease (CAD) Antiplatelet Therapy: <ASA or clopidogrel prescribed> [0866F] - Advance Directives Quality Measure: Measure #47: Care Plan Advance Directives Established: No Advance Directives Information Provided To Patient: Already Provided Advance Directives on File: No Living Will: No Power of Ammonia Nitrate Operator: No Advance Care Planning: <Care Plan/Decision Maker Not Decided; Discussed & Documented> [4172F] - Elder Abuse Suspicion Index Screening: Elder Abuse Suspicion Index Screening Rely on people for bathing, dressing, shopping, banking, etc: No Prevented from getting food, clothes, medication, etc: No Made to feel shamed or threatened by someone: No Forced to sign papers or use money against will: No Feel afraid, touched in ways not wanted or hurt physically: No Poor eye contact, withdrawn, malnourished, cuts or bruises: No Screening Result: Negative result EASI Reference Information: Benjy AHN, Remington C, Kathia D, Blas Aden.Development and validation of a tool to assist physicians identification of elder abuse: The Elder Abuse Suspicion Index (EASI ). Journal of Elder Abuse and Neglect, 2008; 20 (3): 276-300. - Elder Maltreatment Screen Quality Measures: Elder Maltreatment Screen and Follow-Up Plan Elder Maltreatment Screen: <Negative, No Follow-Up Plan Required> [G8734]
[2017-06-15] MEDS ORDERED: HYDROCHLOROTHIAZIDE 25 MG TABLET PO SCH (10:00)
[2017-06-15] MEDS ORDERED: FUROSEMIDE 20 MG TABLET PO SCH (10:00)
[2017-06-15] MEDS ORDERED: ASPIRIN 325 MG TAB ENTERIC-COATED PO SCH (10:00)
[2017-06-15] MEDS ORDERED: LEVEMIR FLEXTOUCH 100 UNIT/ML INSULIN PEN SQ SCH (10:00)
[2017-06-15] MEDS ORDERED: AMLODIPINE BESYLATE 5MG TAB PO SCH (10:00)
[2017-06-15] MEDS ORDERED: POTASSIUM CHLORIDE 10 MEQ TAB PO SCH (10:00)
[2017-06-15] MEDS ORDERED: LOSARTAN POTASSIUM 100 MG TABLET PO SCH (10:00)
[2017-06-15] MEDS ORDERED: SIMVASTATIN 10MG TABLET PO SCH (19:50)
== END 2017-06-15 09:45 | disposition home or self-care (01) ==
LOC: ER 16:51 → MEDSURG 18:58
PROVIDERS: ADMIT Internal Medicine; ATTEND Internal Medicine
DX: I25.10 Atherosclerotic heart disease of native coronary artery without angina pectoris (principal); E11.9 Type 2 diabetes mellitus without complications; Z79.4 Long term (current) use of insulin; E11.40 Type 2 diabetes mellitus with diabetic neuropathy, unspecified; I10 Essential (primary) hypertension; I25.2 Old myocardial infarction; M19.90 Unspecified osteoarthritis, unspecified site; N40.0 Benign prostatic hyperplasia without lower urinary tract symptoms
CPT/HCPCS: 82550; 85025; 85730; 85610; 82553; 80048; 36416; 82948; 84484; 85379; 71046; 93005 ×2; 93010; G0378 ×2; J1815 ×2; J3490; 99220; 99285

== ENCOUNTER 2018-06-13 12:05 | Emergency (ER) | payer MEDICARE, OTHER ==
[2018-06-13] MEDS ORDERED: ACETAMINOPHEN 325 MG TAB PO ONE (12:41)
--- NOTE | 2018-06-13 12:41 | Emergency Department Record ---
History of Present Illness - General Chief Complaint: Fall Injury Stated Complaint: FALL Time Seen by Provider: 06/13/18 12:19 Source: Patient Mode of Arrival: Ambulatory Limitations: No limitations - History of Present Illness Initial Comments: The patient is here due to tripping and falling at home and injuring his head, L ribs and L hand. He tripped and landed on a cement floor. When he got up his ribs were very painful. He denied any LOC and also denies any neck pain. The patient did drive here with no problems and is not on any blood thinners. He presently has a mild ALMODOVAR. Onset/Timin -: Minutes(s) Fall From: Standing When Fall Occurred: Just prior to arrival Fall Witnessed: No Place Fall Occurred: Home Loss of Consciousness: None Associated Symptoms: Denies - Mario Coma Scale Eye Response: (4) Open spontaneously Motor Response: (6) Obeys commands Verbal Response: (5) Oriented [place] Total: 15 - Related Data Previous Rx's Medication Instructions Recorded Acetaminophen [Tylenol 500Mg Tab] 500 mg PO Q6H PRN tablet 06/15/17 Allergies Allergy/AdvReac Type Severity Reaction Status Date / Time meperidine HCl [From Demerol] Allergy Severe PT UNSURE Unverified 05/14/18 10:47 OF REACTION meperidine [MEPERIDINE] Allergy Unknown VOMITING Unverified 05/14/18 10:47 hydrocodone bitartrate AdvReac Intermediate NAUSEA AND Unverified 05/14/18 10:47 [From [place]] VOMITING Travel Screening - Travel/Exposure Within Last 30 Days Have you traveled within the last 30 days?: No - Travel/Exposure Within Last Year Have you traveled outside the [place] in the last year?: No - Additonal Travel Details Have you been exposed to anyone with a communicable illness?: No - Travel Symptoms Symptom Screening: None Review of Systems Constitutional: Denies: Chills, Fever Eyes: Denies: Eye discharge ENT: Denies: Congestion Respiratory: Denies: Cough, Dyspnea Cardiovascular: Denies: Arrhythmia, Chest pain Past Medical History - SOCIAL HISTORY Smoking Status: Former smoker Alcohol Use: Occasional Drug Use: None - RESPIRATORY Hx Respiratory Disorders: Yes Hx of CPAP: Yes - CARDIOVASCULAR Hx Cardio Disorders: Yes Hx Cardiac Cath: Yes Hx Heart Attack: Yes - NEURO Hx Neuro Disorders: No - GI Hx GI Disorders: No - Hx Genitourinary Disorders: No - ENDOCRINE Hx Endocrine Disorders: Yes Hx Diabetes: Yes - MUSCULOSKELETAL Hx Musculoskeletal Disorders: Yes Hx Arthritis: Yes Hx Back Injury: Yes - PSYCH Hx Psych Problems: Yes Hx Depression: Yes - HEMATOLOGY/ONCOLOGY Hx Hematology/Oncology Disorders: No Family Medical History Any Significant Family History?: No Hx Cancer: Mother Hx Heart Disease: Father *Heart Comment: father had 2 heart attacks. Hx Stroke: Father Physical Exam - General General Appearance: Alert, Oriented x3, Cooperative, No acute distress - Head Head exam: Atraumatic, Normocephalic, Normal inspection - Eye Eye exam: Normal appearance, PERRL, EOMI - ENT ENT exam: negative: Normal exam Nasal Exam: negative: Normal inspection (There is mild tenderness to the nasal bridge with no deformity. ) Throat exam: Normal inspection. negative: Tonsillar erythema, Tonsillar exudate - Neck Neck exam: Normal inspection, Full ROM. negative: Lymphadenopathy, Meningismus , Tenderness - Respiratory Respiratory exam: Normal lung sounds bilaterally, Chest wall tenderness (There is L rib tenderness.). negative: Respiratory distress - Cardiovascular Cardiovascular Exam: Regular rate, Normal rhythm, Normal heart sounds - Extremities Extremities exam: Normal inspection, Tenderness (There is L hand tenderness over the proximal hypothenar area. ). negative: Full ROM - Back Back exam: Reports: Normal inspection - Neurological Neurological exam: Alert, Normal gait, Oriented X3. negative: Abnormal gait, Altered, Motor sensory deficit Course Vital Signs 06/13/18 12:15 Temperature 97.7 F Pulse Rate [ 59 L Pulse Ox Probe] Respiratory 16 Rate Blood Pressure 164/67 [Left Arm] Pulse Ox 96 - Reevaluation(s) Reevaluation #1: The patient is resting comfortably at this time. I did discuss the single rib fx and the need to take his home pain medicines. He is to rest when possible and see his PCP this week for recheck. 06/13/18 13:43 Medical Decision Making - Data Complexity MDM Data: X-Ray Ordered and/or Reviewed - Radiology Data Radiology results: Report reviewed (L hand: Neg Head CT: Neg for any acute changes. Chest CT: Single nondisplaced fx L T6 anteriorly.) Disposition Disposition: Discharge Clinical Impression: Left rib fracture Qualifiers: Encounter type: initial encounter Rib fracture type: single rib Fracture type: closed Qualified Code(s): S22.32XA - Fracture of one rib, left side, initial encounter for closed fracture Disposition: Home, Self-Care Condition: (2) Stable Instructions: Rib Fracture (ED), Fall Prevention for Older Adults (ED) Additional Instructions: Please take your home pain medicines as needed and rest when possible. Use the L wrist splint for a week. Please see your family doctor for recheck later this week. Return to the ER for any worsening symptoms of any pain, any fever, or trouble breathing. Forms: Patient Portal Access Time of Disposition: 13:46 Quality - Quality Measures Quality Measures: N/A - Blood Pressure Screening View Details: Yes Does Patient Have Any of the Following: Active Dx of HTN Blood Pressure Classification: Hypertensive Reading Systolic Measurement: 148 Diastolic Measurement: 64 Screening for High Blood Pressure: Patient Exclusion, Hx of HTN [G9744]
== END 2018-06-13 14:06 | disposition home or self-care (01) ==
LOC: ER 12:05
DX: S22.32XA Fracture of one rib, left side, initial encounter for closed fracture (principal); M79.642 Pain in left hand; J34.89 Other specified disorders of nose and nasal sinuses; R51 Headache; W01.198A Fall on same level from slipping, tripping and stumbling with subsequent striking against other object, initial encounter; Y92.009 Unspecified place in unspecified non-institutional (private) residence as the place of occurrence of the external cause; I10 Essential (primary) hypertension; I25.2 Old myocardial infarction
CPT/HCPCS: 70450; 71250; 99283; 99284

== ENCOUNTER 2018-07-24 20:41 | Emergency (ER) | payer MEDICARE, OTHER ==
--- NOTE | 2018-07-24 23:13 | Emergency Department Record ---
History of Present Illness - General Chief Complaint: Fall Injury Stated Complaint: FALL INJURY Time Seen by Provider: 07/24/18 21:29 Source: Patient Mode of Arrival: Ambulatory Limitations: No limitations - History of Present Illness Initial Comments: pt fell back into the grass injuring his back and neck and head . he has hx of fusion. 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 Place Fall Occurred: Home Loss of Consciousness: None Prolonged Down Time?: Minute(s) Symptoms Prior to Fall: None Location: Neck, Back Severity scale (1-10): 3 Associated Symptoms: Denies - Mario Coma Scale Eye Response: (4) Open spontaneously Motor Response: (6) Obeys commands Verbal Response: (5) Oriented Gardner Total: 15 - Related Data Previous Rx's Medication Instructions Recorded Acetaminophen [Tylenol 500Mg Tab] 500 mg PO Q6H PRN tablet 06/15/17 Allergies Allergy/AdvReac Type Severity Reaction Status Date / Time meperidine HCl [From Demerol] Allergy Severe PT UNSURE Verified 07/24/18 21:04 OF REACTION meperidine [MEPERIDINE] Allergy Unknown VOMITING Verified 07/24/18 21:04 hydrocodone bitartrate AdvReac Intermediate NAUSEA AND Verified 07/24/18 21:04 [From [place]] VOMITING Travel Screening - Travel/Exposure Within Last 30 Days Have you traveled within the last 30 days?: No - Travel Symptoms Symptom Screening: None Review of Systems Reviewed: No additional complaints except as noted below Constitutional: Reports: As per HPI. Denies: Chills, Fever, Malaise, Night sweats, Weakness, Weight change Eyes: Reports: As per HPI. Denies: Eye discharge, Eye pain, Photophobia, Vision change ENT: Reports: As per HPI. Denies: Congestion, Dental pain, Ear pain, Epistaxis, Hearing loss, Throat pain Respiratory: Reports: As per HPI. Denies: Cough, Dyspnea, Hemoptysis, Stridor, Wheezes Cardiovascular: Reports: As per HPI. Denies: Arrhythmia, Chest pain, Dyspnea on exertion, Edema, Murmurs, Orthopnea, Palpitations, Paroxysmal nocturnal dyspnea, Rheumatic Fever, Syncope Endocrine: Reports: As per HPI. Denies: Fatigue, Heat or cold intolerance, Polydipsia, Polyuria Gastrointestinal: Reports: As per HPI. Denies: Abdominal pain, Constipation, Diarrhea, Hematemesis, Hematochezia, Melena, Nausea, Vomiting Genitourinary: Reports: As per HPI. Denies: Dysuria, Frequency, Hematuria, Incontinence, Retention, Testicular pain, Testicular mass, Urgency Musculoskeletal: Reports: As per HPI. Denies: Arthralgia, Back pain, Gout, Joint swelling, Myalgia, Neck pain Skin: Reports: As per HPI. Denies: Bruising, Change in color, Change in hair/nails, Lesions, Pruritus, Rash Neurological: Reports: As per HPI. Denies: Abnormal gait, Confusion, Headache, Numbness, Paresthesias, Seizure, Tingling, Tremors, Vertigo, Weakness Psychiatric: Reports: As per HPI. Denies: Anxiety, Auditory hallucinations, Depression, Homicidal thoughts, Suicidal thoughts, Visual hallucinations Hematological/Lymphatic: Reports: As per HPI. Denies: Anemia, Blood Clots, Easy bleeding, Easy bruising, Swollen glands Past Medical History - SOCIAL HISTORY Smoking Status: Former smoker - RESPIRATORY Hx Respiratory Disorders: Yes Hx Sleep Apnea: Yes Hx of CPAP: Yes - CARDIOVASCULAR Hx Cardio Disorders: Yes Hx Cardiac Cath: Yes Hx Edema: Yes Hx Heart Attack: Yes Hx Hypertension: Yes Comment:: high cholesterol - NEURO Hx Neuro Disorders: Yes Hx Neuropathy: Yes - GI Hx GI Disorders: No - Hx Genitourinary Disorders: No - ENDOCRINE Hx Endocrine Disorders: Yes Hx Diabetes: Yes - MUSCULOSKELETAL Hx Musculoskeletal Disorders: Yes Hx Arthritis: Yes Hx Back Injury: Yes - PSYCH Hx Psych Problems: Yes Hx Depression: Yes - HEMATOLOGY/ONCOLOGY Hx Hematology/Oncology Disorders: No Family Medical History Any Significant Family History?: Yes Hx Cancer: Mother Hx Heart Disease: Father *Heart Comment: father had 2 heart attacks. Hx Stroke: Father Physical Exam - General General Appearance: Alert, Oriented x3, Cooperative, Mild distress - Head Head exam: Normal inspection Head exam detail: General tenderness - Eye Eye exam: Normal appearance, PERRL, EOMI Pupils: Normal accommodation - ENT ENT exam: Normal exam, Mucous membranes moist, Normal external ear exam, Normal orophraynx Ear exam: Normal external inspection. negative: External canal tenderness Nasal Exam: Normal inspection. negative: Discharge, Sinus tenderness Mouth exam: Normal external inspection, Tongue normal Teeth exam: Normal inspection. negative: Dental caries Throat exam: Normal inspection. negative: Tonsillar erythema, Tonsillar exudate - Neck Neck exam: Normal inspection, Full ROM, Tenderness - Respiratory Respiratory exam: Normal lung sounds bilaterally. negative: Respiratory distress - Cardiovascular Cardiovascular Exam: Regular rate, Normal rhythm, Normal heart sounds - GI/Abdominal GI/Abdominal exam: Soft, Normal bowel sounds. negative: Tenderness - Rectal Rectal exam: Deferred - exam: Deferred - Extremities Extremities exam: Normal inspection, Full ROM, Normal capillary refill. negative: Tenderness - Back Back exam: Reports: Normal inspection, Full ROM, Tenderness, Vertebral tenderness (upper thoracic). Denies: Muscle spasm, Rash noted - Neurological Neurological exam: Alert, CN II-XII intact, Normal gait, Oriented X3 - Psychiatric Psychiatric exam: Normal affect, Normal mood - Skin Skin exam: Dry, Intact, Normal color, Warm Course Vital Signs 07/24/18 20:53 Temperature 97.8 F Pulse Rate [ 62 Left] Respiratory 16 Rate Blood Pressure 166/73 [Left Arm] Pulse Ox 98 Disposition Disposition: Discharge Clinical Impression: Multiple contusions Disposition: Home, Self-Care Condition: (1) Good Instructions: Fall Prevention for Older Adults (ED), Contusion in Adults (ED) Additional Instructions: follow up with family doctor. return sooner if worse. ice to sore areas Forms: Patient Portal Access Quality - Quality Measures Quality Measures: N/A - Blood Pressure Screening Does Patient Have Any of the Following: Active Dx of HTN Blood Pressure Classification: Hypertensive Reading Systolic Measurement: 166 Diastolic Measurement: 73 Screening for High Blood Pressure: Patient Exclusion, Hx of HTN [[id number]]
--- NOTE | 2018-07-27 08:56 | CT SCAN REPORT ---
EXAM: EMERGENCY HEAD CT HISTORY: PATIENT FELL, VERTIGO. TECHNIQUE: Axial CT scan of the head was performed without IV contrast. Comparison: Head CT 06/13/18. Encounter: Initial. FINDINGS: No definite acute intracranial hemorrhage identified. No focal mass effect or midline shift evident. Mild generalized atrophy as before. No definite acute infarct or intracranial mass lesion seen. No depressed calvarial fracture evident. IMPRESSION: 1. MILD GENERALIZED ATROPHY BEFORE. 2. NO DEFINITE ACUTE INTRACRANIAL HEMORRHAGE OR FOCAL MASS EFFECT EVIDENT. JOB NUMBER: [id number] MTDD
--- NOTE | 2018-07-27 09:28 | CT SCAN REPORT ---
EXAM: EMERGENCY CERVICAL SPINE CT HISTORY: PATIENT FELL WITH LOWER NECK PAIN. HISTORY OF NECK FUSION. TECHNIQUE: Axial CT scan of the entire cervical spine was performed without IV contrast. Comparison: Cervical spine CT dated 11/21/13. Encounter: Initial. FINDINGS: Membrane thickening is seen in the floor of the right maxillary sinus. No apical pneumothorax is evident. Postop sternotomy incidentally noted. No definite fracture of the cervical spine identified. No prevertebral soft tissue swelling is seen. Anterior cervical fusion from C5 to C7 again seen with associated internal plate and screw fixation device. Rounded radiolucency in the body of C4 appears essentially unchanged from before as well. Multilevel facet joint arthropathy. Degenerative change at the odontoid-anterior arch of T1 articulation. Prominent spurring at the anterior aspect of the T1-T2 interspace has progressed from the prior CT. Prominent spurring at the C2-C3 and C3-C4 interspaces were present previously as well. Some ligamentous calcification adjacent to the tip of the spinous process of T1 as before. Multilevel foraminal stenosis in the cervical spine. IMPRESSION: 1. NO DEFINITE ACUTE FRACTURE OR PREVERTEBRAL SOFT TISSUE SWELLING SEEN IN THE CERVICAL SPINE. 2. ANTERIOR CERVICAL FUSION OF C5 THROUGH C7 BEFORE. 3. STABLE ROUNDED RADIOLUCENT LESION IN THE BODY OF C4. 4. MULTILEVEL DEGENERATIVE CHANGE IN THE CERVICAL SPINE WITH MULTILEVEL FORAMINAL STENOSIS. 5. PROGRESSIVE SPURRING ALONG THE ANTERIOR ASPECT OF THE T1-T2 INTERSPACE COMPARED WITH THE PRIOR CT OF 11/21/13. JOB NUMBER: [id number] MTDD
--- NOTE | 2018-07-27 09:34 | CT SCAN REPORT ---
EXAM: EMERGENCY CT OF THE THORACIC SPINE WITHOUT CONTRAST HISTORY: INJURY, FELL, BACK PAIN. TECHNIQUE: Axial CT scan of the entire thoracic spine was performed without IV contrast. Comparison: No prior thoracic CT with which to compare. Encounter: Initial. FINDINGS: The upper scans demonstrate the lower aspect of the anterior cervical fusion reported in the cervical spine CT from today. No definite acute fracture of the thoracic spine identified. There are exuberant hypertrophic spurs along the anterior aspect of virtually the entire thoracic spine. There is calcification of some of the thoracic intervertebral disk spaces as well. No paraspinal soft tissue mass identified. IMPRESSION: 1. EXUBERANT HYPERTROPHIC SPURRING ANTERIORLY THROUGHOUT VIRTUALLY THE ENTIRE THORACIC SPINE. 2. NO DEFINITE ACUTE FRACTURE OF THE THORACIC SPINE IDENTIFIED. NO PARASPINAL SOFT TISSUE MASS SEEN IN THE THORACIC SPINAL REGION. JOB NUMBER: [id number] MTDD
== END 2018-07-24 23:36 | disposition home or self-care (01) ==
LOC: ER 20:41
DX: S00.93XA Contusion of unspecified part of head, initial encounter (principal); S10.93XA Contusion of unspecified part of neck, initial encounter; S20.229A Contusion of unspecified back wall of thorax, initial encounter; W01.198A Fall on same level from slipping, tripping and stumbling with subsequent striking against other object, initial encounter; Y92.007 Garden or yard of unspecified non-institutional (private) residence as the place of occurrence of the external cause; I10 Essential (primary) hypertension; I25.2 Old myocardial infarction; E11.9 Type 2 diabetes mellitus without complications; Z87.891 Personal history of nicotine dependence
CPT/HCPCS: 70450; 72125; 72128; 99283; 99284